=== PATIENT | female | born 1985 | race Caucasian/White ===

== ENCOUNTER 2021-03-19 23:59 | Inpatient (IN) ==
[2021-03-20] MEDS ORDERED: *HR* Nalbuphine 10 MG/ML AMPUL IV PRN (00:32)
[2021-03-20] MEDS ORDERED: Lidocaine 1% 20 ML MDV INFILT PRN (00:32)
[2021-03-20] MEDS ORDERED: Naloxone 0.4 MG/ML INJ IVP PRN (00:32)
[2021-03-20] MEDS ORDERED: Metoclopramide 10 MG/2 ML VIAL IVP PRN (00:32)
[2021-03-20] MEDS ORDERED: Famotidine 20 MG/2 ML VIAL IVP PRN (00:32)
[2021-03-20] MEDS ORDERED: Ringers Solution, Lactated 1,000 ML IVC SCH (00:45)
[2021-03-20] MEDS ORDERED: Oxytocin 20 units/ LR 1000 mL 20 UNIT/1,000 ML BAG IVC SCH ×2 (00:45→12:52)
[2021-03-20] MEDS ORDERED: Penicillin G Potassium 5,000,000 UNIT in 0.9 % Sodium Chloride Mini Bag 100 ML IVPB ONE (00:51)
[2021-03-20 01:18] LABS: Basophils % 0.3 %; Eosinophils # 0.1 K/mcL (0.0-0.6); Eosinophils % 0.9 %; Hematocrit 30.1 % (35.3-44.9); Hemoglobin 10.7 g/dL (11.5-15.4); Immature Granulocytes % 0.5 % (0-4); Lymphocytes # 2.3 K/mcL (0.6-4.6); Lymphocytes % 22.1 %; Mean Corpuscular HGB Conc 35.5 g/dL (31.6-35.5); Mean Corpuscular Hemoglobin 33.3 pg (28.0-33.3); Mean Corpuscular Volume 93.8 fL (83.0-100.0); Monocytes # 0.8 K/mcL (0.0-1.3); Monocytes % 7.4 %; Neutrophils # 7.1 K/mcL (1.6-8.9); Platelet Count 204 K/mcL (140-400); Red Blood Count 3.21 M/mcL (3.82-4.97); Red Cell Distribution Width 12.1 % (11.5-14.5); Segmented Neutrophils % 68.8 %; White Blood Count 10.3 K/mcL (4.3-11.1)
[2021-03-20 01:26] LABS: Amphetamine Screen,Urine Negative ng/mL (Cutoff=1000); Barbiturate Screen,Urine Negative ng/mL (Cutoff=200); Benzodiazepines Screen,Urine Negative ng/mL (Cutoff=200); Cannabinoid Screen,Urine Negative ng/mL (Cutoff = 50); Cocaine Screen,Urine Negative ng/mL (Cutoff= 300); Opiate Screen,Urine Negative ng/mL (Cutoff=300); Phencyclidine Screen,Urine Negative ng/mL (Cutoff=25)
[2021-03-20 03:02] LABS: Influenza A PCR Negative (Negative); Influenza B PCR Negative (Negative); Resp. Syncytial Virus PCR Negative (Negative)
[2021-03-20 03:03] LABS: SARS-CoV-2 by PCR (In House) Negative (Negative)
[2021-03-20] MEDS ORDERED: EPHEDrine 50 MG/ML VIAL IVP PRN (05:33)
[2021-03-20] MEDS: Penicillin G Potassium 2,500,000 UNIT/105 ML MLS IVPB SCH ×2 (05:37→10:38)
[2021-03-20] MEDS ORDERED: Epidural Premix (fent/bupiv) 110 ML EP SCH (05:45)
[2021-03-20] MEDS ORDERED: Ropivacaine/PF 0.2% 20 ML VIAL ONE (09:58)
[2021-03-20] MEDS ORDERED: Rho Immune Globulin 1,500 UNIT SYRINGE IM PRN (12:52)
[2021-03-20] MEDS ORDERED: Acetaminophen 325 MG TABLET PO PRN (12:52)
[2021-03-20] MEDS ORDERED: Measles/Mumps/Rubella Vacc 0.5 ML VIAL SQ PRN (12:52)
[2021-03-20] MEDS ORDERED: Lanolin 7 G OINT...G. TP PRN ×2 (20:38→20:55)
[2021-03-21] MEDS: Ibuprofen 600 MG TABLET PO PRN ×2 (01:08→08:18)
[2021-03-21 08:02] VITALS: BP 105/69; PULSE 94; TEMP 97.9; O2SAT 100
[2021-03-21 08:23] LABS: Basophils % 0.3 %; Eosinophils # 0.1 K/mcL (0.0-0.6); Eosinophils % 0.7 %; Hematocrit 28.5 % (35.3-44.9); Hemoglobin 10.1 g/dL (11.5-15.4); Immature Granulocytes % 0.6 % (0-4); Lymphocytes # 1.8 K/mcL (0.6-4.6); Lymphocytes % 15.5 %; Mean Corpuscular HGB Conc 35.4 g/dL (31.6-35.5); Mean Corpuscular Hemoglobin 34.1 pg (28.0-33.3); Mean Corpuscular Volume 96.3 fL (83.0-100.0); Mean Platelet Volume 9.2 fL (9.4-12.4); Monocytes # 0.6 K/mcL (0.0-1.3); Monocytes % 5.3 %; Platelet Count 163 K/mcL (140-400); Red Blood Count 2.96 M/mcL (3.82-4.97); Red Cell Distribution Width 12.6 % (11.5-14.5); Segmented Neutrophils % 77.6 %; White Blood Count 11.6 K/mcL (4.3-11.1)
[2021-03-21] MEDS ORDERED: valACYclovir 500 MG TABLET PO SCH (09:00)
[2021-03-21] MEDS ORDERED: Prenatal Vit/FA 1 EACH TABLET PO SCH (09:00)
== END 2021-03-21 14:27 | disposition home or self-care (01) | DRG 806 ==
LOC: 1NENULAB 23:59 → 1NENUOBS 03-20 14:01
PROVIDERS: ADMIT Obstetrics & Gynecology; ATTEND Obstetrics & Gynecology